=== PATIENT | female | born 1950 | race African-American/Black ===

== ENCOUNTER → 2016-10-22 | Outpatient (CLI) | payer MEDICARE ==
[~2016-10-22] MED LIST: ALPR0.5T6 PO; AMLO10TA2 PO; AMLO5TAB2 PO; ASPI-496 PO; ASPI-621 PO; ATOR10TA9 PO; ATOR20TA9 PO; BUSP10TA PO; CHOL10003 PO; CYAN1TAB29 PO; CYAN2500 PO; DULO60CA7 PO; LEVO100T5 PO; MELO-184 PO; METO50TA82 PO; OMEP-110 PO; SPIR50TA2 PO
== END | disposition home or self-care (01) ==
LOC: CFH 14:55
PROVIDERS: ATTEND Physician Assistant Medical
DX: M17.0 Bilateral primary osteoarthritis of knee (principal)

== ENCOUNTER 2017-02-26 13:09 | Emergency (ER) | payer MEDICARE ==
[~2017-02-26] VITALS: Ht 167.6 cm; Wt 85.0 kg
[~2017-02-26 13:09] MED LIST changes: -MELO-184 PO; +MELO15TA24 PO
[2017-02-26 13:11] VITALS: BP 108/72
== END 2017-02-26 14:05 | disposition home or self-care (01) ==
LOC: ED 13:59
DX: M26.622 Arthralgia of left temporomandibular joint (principal); K21.9 Gastro-esophageal reflux disease without esophagitis; I10 Essential (primary) hypertension; E78.00 Pure hypercholesterolemia, unspecified; I25.2 Old myocardial infarction; Z90.49 Acquired absence of other specified parts of digestive tract; Z90.710 Acquired absence of both cervix and uterus; Z88.8 Allergy status to other drugs, medicaments and biological substances
CPT/HCPCS: 99283